=== PATIENT | female | born 1940 | race Hispanic/Latino ===

== ENCOUNTER 2021-09-15 06:46 | Observation (INO) | payer MEDICARE ==
[2021-09-11 15:52] LABS: BASOPHILS % 0.5 % (0.0-1.0); EOSINOPHILS # (AUTO) 0.2 (0.0-0.4); EOSINOPHILS % 2.9 % (0.0-6.0); HEMATOCRIT 36.4 % (34.2-44.1); HEMOGLOBIN 11.9 g/dL (12.0-16.0); LYMPHOCYTES # (AUTO) 1.6 (1.0-3.2); LYMPHOCYTES % 25.2 % (18.0-39.1); MEAN CORPUSCULAR HEMOGLOBIN 29.7 pg (28-32); MEAN CORPUSCULAR HGB CONC 32.7 g/dL (31-35); MEAN CORPUSCULAR VOLUME 90.8 fL (81-99); MONOCYTES # (AUTO) 0.6 (0.2-0.8); MONOCYTES % 9.8 % (4.4-11.3); NEUTROPHILS # (AUTO) 3.8 (2.1-6.9); NEUTROPHILS % 61.4 % (38.7-80.0); PLATELET COUNT 192 x10e3/uL (140-360); RED BLOOD COUNT 4.01 x10e6/uL (3.6-5.1); RED CELL DISTRIBUTION WIDTH 14.2 % (11.7-14.4)
[2021-09-11 16:09] LABS: CALCIUM 9.1 mg/dL (8.4-10.2); CREATININE, SERUM 0.94 mg/dL (0.57-1.11)
[~2021-09-15] VITALS: Ht 149.9 cm; Wt 72.6 kg
[~2021-09-15 06:46] MED LIST: ALENDRONATE SODI5 MG; ATORVASTATIN CA20 MG PO; CIPRO500 MG PO; DICYCLOMINE HCL10 MG PO; FUROSEMIDE40 MG PO; GABAPENTIN300 MG PO; GLIPIZIDE-METF1 EAC2 PO; HYDRALAZINE HCL25 MG PO; JARDIANCE10 MG; LANTUS 3ML100 UNITS/ SC; LEVOTHYROXINE112 MCG PO; LEVSIN-SL0.125 MG PO; LOSARTAN POTASS25 MG PO; LYRICA50 MG PO; METFORMIN HCL500 MG PO; METOPROLOL TART50 MG PO; METRONIDAZOLE500 MG PO; OMEPRAZOLE40 MG PO; PEPCID20 MG PO; SENNA LAX8.6 MG PO; TYLENOL # 31 EA PO; ZOFRAN ODT4 MG PO
[2021-09-15] MEDS ORDERED: SODIUM CHLORIDE 0.9% 50ML 100 ML ONE (06:52)
[2021-09-15] MEDS ORDERED: GABAPENTIN 300 MG CAP ONE (06:52)
[2021-09-15] MEDS ORDERED: CELECOXIB 200 MG CAP ONE (06:52)
[2021-09-15] MEDS ORDERED: DEXAMETHASONE SOD PHOS 10 MG/1 ML VIAL ONE (06:52)
[2021-09-15] MEDS ORDERED: TRANEXAMIC ACID 1,000 MG/10 ML ML ONE (06:57)
[2021-09-15] MEDS ORDERED: SODIUM CHLORIDE 0.9% 500ML 500 ML ONE (06:58)
[2021-09-15] MEDS ORDERED: Vancomycin IV 1,000 MG ONE (06:58)
[2021-09-15] MEDS ORDERED: ROPIVACAINE 246.25 MG, EPINEPHRINE HCL 1:1000 1ML 0.5 MG, CLONIDINE HCL 0.08 MG, KETORO... INJ ONE ×5 (08:00)
[2021-09-15] MEDS ORDERED: KETOROLAC TROMETHAMINE 30 MG/ML VIAL IV PRN (09:45)
[2021-09-15] MEDS ORDERED: DIPHENHYDRAMINE HCL INJ 50 MG/ML VIAL IV PRN (09:45)
[2021-09-15] MEDS ORDERED: HYDROCODONE/APAP 7.5MG-325MG 1 EA TAB PO PRN (09:45)
[2021-09-15] MEDS ORDERED: ONDANSETRON HCL INJ 2MG/ML 2ML 2 MG/ML VIAL IV PRN (09:45)
[2021-09-15] MEDS ORDERED: DOCUSATE SODIUM 100 MG CAP PO PRN (09:45)
[2021-09-15] MEDS ORDERED: SODIUM CHLORIDE 0.9% 1000ML 1,000 ML IV SCH (09:45)
[2021-09-15] MEDS ORDERED: HYDROCODONE/APAP 5MG-325MG TAB PO PRN (09:45)
[2021-09-15] MEDS ORDERED: ACETAMINOPHEN 650 MG SUPP PR PRN (09:45)
[2021-09-15] MEDS ORDERED: LABETALOL HCL 20 ML ONE (09:55)
[2021-09-15] MEDS ORDERED: FENTANYL CITRATE/PF 100MCG/2 ML INJ ONE ×2 (10:16→13:10)
[2021-09-15] MEDS ORDERED: ACETAMINOPHEN 1000 MG/100 ML IV PRN (12:00)
[2021-09-15 12:03] VITALS: BP 150/90
[2021-09-15] MEDS ORDERED: POVIDONE IODINE 0.05% 0.05 % ML PO ONE (12:18)
[2021-09-15] MEDS ORDERED: SEVOFLURANE INHAL SOLN 250 ML PEN BTL ONE (12:18)
[2021-09-15] MEDS ORDERED: ONDANSETRON HCL INJ 2MG/ML 2ML 2 MG/ML VIAL ONE (12:18)
[2021-09-15] MEDS ORDERED: LIDOCAINE HCL 2% LOCAL INJ 5 ML SDV VIAL INJ ONE (12:18)
[2021-09-15] MEDS ORDERED: ACETAMINOPHEN 1000 MG/100 ML IV ONE (12:18)
[2021-09-15] MEDS ORDERED: PROPOFOL IV EMULSION 10 MG/ML 20 ML VIAL ONE (12:18)
[2021-09-15] MEDS ORDERED: GLYCOPYRROLATE INJ 0.2 MG/ML VIAL ONE (12:18)
[2021-09-15 12:46] VITALS: BP 141/73
[2021-09-15] MEDS ORDERED: ROPIVACAINE 0.5% 5 MG/ML 30 ML SDV ONE (13:03)
[2021-09-15] MEDS ORDERED: MIDAZOLAM HCL 2 MG/2 ML VIAL ONE (13:10)
[2021-09-15 15:54] VITALS: BP 145/82
[2021-09-15] MEDS ORDERED: Cefazolin 1 GM in SODIUM CHLORIDE 0.9% 50ML 50 ML IV SCH (16:00)
[2021-09-15] MEDS ORDERED: CELECOXIB 100 MG CAP PO SCH (17:00)
[2021-09-15] MEDS ORDERED: ASPIRIN 325 MG TAB PO SCH (17:00)
[2021-09-15] MEDS ORDERED: ZOLPIDEM TARTRATE 5 MG TAB PO PRN (21:00)
[2021-09-16] MEDS ORDERED: CELECOXIB 200 MG CAP PO SCH (09:00)
== END 2021-09-15 20:02 | disposition home or self-care (01) ==
LOC: OR 06:46 → PACU V 09:34 → MED/SURG 10:42
PROVIDERS: ADMIT Specialist; ATTEND Specialist
DX: M17.0 Bilateral primary osteoarthritis of knee (principal); Z20.822 Contact with and (suspected) exposure to COVID-19; Z88.0 Allergy status to penicillin; Z01.818 Encounter for other preprocedural examination; I10 Essential (primary) hypertension; E78.5 Hyperlipidemia, unspecified; K21.9 Gastro-esophageal reflux disease without esophagitis; Z86.73 Personal history of transient ischemic attack (TIA), and cerebral infarction without residual deficits; E11.9 Type 2 diabetes mellitus without complications; E11.8 Type 2 diabetes mellitus with unspecified complications; E03.9 Hypothyroidism, unspecified
CPT/HCPCS: 27447; 36415 ×2; 71046; 73560; 80048; 82948; 85025; 86850; 86900; 86920; 97116; 97161; 97530; C1713; G0378; J0131; J0171; J0690; J1100; J1885; J2001; J2250; J2405; J2704; J2795; J3010; J3370; J7030; J7040; U0002

== ENCOUNTER 2022-12-29 06:21 | Observation (INO) | payer MEDICARE ==
[2022-12-28 10:44] LABS: BASOPHILS % 0.5 % (0.0-1.0); EOSINOPHILS # (AUTO) 0.2 (0.0-0.4); EOSINOPHILS % 2.9 % (0.0-6.0); HEMATOCRIT 38.6 % (34.2-44.1); HEMOGLOBIN 12.6 g/dL (12.0-16.0); LYMPHOCYTES # (AUTO) 1.5 (1.0-3.2); LYMPHOCYTES % 23.7 % (18.0-39.1); MEAN CORPUSCULAR HEMOGLOBIN 28.9 pg (28-32); MEAN CORPUSCULAR HGB CONC 32.6 g/dL (31-35); MEAN CORPUSCULAR VOLUME 88.5 fL (81-99); MONOCYTES # (AUTO) 0.5 (0.2-0.8); MONOCYTES % 8.8 % (4.4-11.3); NEUTROPHILS # (AUTO) 3.9 (2.1-6.9); NEUTROPHILS % 63.8 % (38.7-80.0); PLATELET COUNT 200 x10e3/uL (140-360); RED BLOOD COUNT 4.36 x10e6/uL (3.6-5.1); RED CELL DISTRIBUTION WIDTH 13.8 % (11.7-14.4)
[2022-12-28 11:02] LABS: ANION GAP 16.4 mmol/L (8-16); CALCIUM 9.3 mg/dL (8.4-10.2); CREATININE, SERUM 1.05 mg/dL (0.57-1.11); POTASSIUM 4.4 mmol/L (3.5-5.1)
[~2022-12-29] VITALS: Ht 149.9 cm; Wt 68.5 kg
[2022-12-29] VITALS (7 sets, daily range): BP systolic 110–136; BP diastolic 57–74; PULSE 63–72; RESP 16–18; TEMP 97.4–97.9; O2SAT 95–99
[~2022-12-29 06:21] MED LIST changes: -ALENDRONATE SODI5 MG; +ALENDRONATE SODI5 MG PO; +JARDIANCE10 MG PO; +ZETIA10 MG PO
[2022-12-29] MEDS ORDERED: CELECOXIB 200 MG CAP ONE (07:07)
[2022-12-29] MEDS ORDERED: CEFAZOLIN SODIUM 2 GM ONE (07:08)
[2022-12-29] MEDS ORDERED: GABAPENTIN 300 MG CAP ONE (07:08)
[2022-12-29] MEDS ORDERED: DEXAMETHASONE SOD PHOS 10 MG/1 ML VIAL ONE (07:08)
[2022-12-29] MEDS ORDERED: LACTATED RINGER'S 1,000 ML ONE (07:08)
[2022-12-29] MEDS ORDERED: ROPIVACAINE 246.25 MG, EPINEPHRINE HCL 1:1000 1ML 0.5 MG, CLONIDINE HCL 0.08 MG, KETORO... INJ ONE ×5 (07:30)
[2022-12-29] MEDS ORDERED: SODIUM CHLORIDE 0.9% 500ML 500 ML ONE (08:05)
[2022-12-29] MEDS ORDERED: TRANEXAMIC ACID 20 ML ONE (08:05)
[2022-12-29] MEDS ORDERED: Vancomycin IV 1 GM VIAL ONE (08:05)
[2022-12-29] MEDS ORDERED: Vancomycin IV 1,000 MG ONE (08:16)
[2022-12-29] MEDS ORDERED: KETAMINE 50MG/5ML SYR ONE (09:00)
[2022-12-29] MEDS ORDERED: HYDROCODONE/APAP 7.5MG-325MG 1 EA TAB PO PRN (09:45)
[2022-12-29] MEDS ORDERED: HYDROCODONE/APAP 5MG-325MG TAB PO PRN (09:45)
[2022-12-29] MEDS ORDERED: DIPHENHYDRAMINE HCL INJ 50 MG/ML VIAL IV PRN (09:45)
[2022-12-29] MEDS ORDERED: ONDANSETRON HCL INJ 2MG/ML 2ML 2 MG/ML VIAL IV PRN (09:45)
[2022-12-29] MEDS: SODIUM CHLORIDE 0.9% 1000ML 1,000 ML IV SCH ×2 (09:45→23:13)
[2022-12-29] MEDS ORDERED: DOCUSATE SODIUM 100 MG CAP PO PRN (09:45)
[2022-12-29] MEDS ORDERED: LIDOCAINE HCL 2% LOCAL INJ 5 ML SDV VIAL INJ ONE (12:51)
[2022-12-29] MEDS ORDERED: POVIDONE IODINE 0.05% 0.05 % ML PO ONE (12:51)
[2022-12-29] MEDS ORDERED: SEVOFLURANE INHAL SOLN 250 ML PEN BTL ONE (12:51)
[2022-12-29] MEDS ORDERED: ONDANSETRON HCL INJ 2MG/ML 2ML 2 MG/ML VIAL ONE (12:51)
[2022-12-29] MEDS ORDERED: PROPOFOL IV EMULSION 10 MG/ML 20 ML VIAL ONE (12:51)
[2022-12-29] MEDS ORDERED: FENTANYL CITRATE/PF 100MCG/2 ML INJ ONE (12:59)
[2022-12-29] MEDS ORDERED: MIDAZOLAM HCL 2 MG/2 ML VIAL ONE (12:59)
[2022-12-29] MEDS ORDERED: ROPIVACAINE 0.5% 5 MG/ML 30 ML SDV ONE (13:38)
[2022-12-29] MEDS ORDERED: ACETAMINOPHEN 1000 MG/100 ML IV PRN (15:00)
[2022-12-29] MEDS: ASPIRIN 325 MG TAB PO SCH (16:55)
[2022-12-29] MEDS: CELECOXIB 100 MG CAP PO SCH (16:55)
[2022-12-30] VITALS (7 sets, daily range): BP systolic 104–117; BP diastolic 61–69; PULSE 66–70; RESP 16–18; TEMP 97.1–97.7; O2SAT 98–100
[2022-12-30] MEDS ORDERED: ALENDRONATE SODIUM 70 MG PO SCH
[2022-12-30] MEDS ORDERED: EZETIMIBE 10 MG TAB PO ONE (00:15)
[2022-12-30] MEDS ORDERED: ATORVASTATIN 20 MG TAB PO ONE (00:15)
[2022-12-30] MEDS ORDERED: METFORMIN HCL 500 MG TAB PO ONE (00:15)
[2022-12-30] MEDS ORDERED: GLIPIZIDE 5 MG TAB PO ONE (00:15)
[2022-12-30 05:39] LABS: HEMATOCRIT 32.5 % (34.2-44.1); HEMOGLOBIN 10.6 g/dL (12.0-16.0)
[2022-12-30] MEDS ORDERED: LEVOTHYROXINE SODIUM 50 MCG TAB PO SCH (06:00)
[2022-12-30] MEDS ORDERED: PANTOPRAZOLE SOD 40 MG TABEC PO SCH (07:30)
[2022-12-30] MEDS ORDERED: GLIPIZIDE 5 MG TAB PO SCH ×2 (07:30→21:00)
[2022-12-30] MEDS ORDERED: METFORMIN HCL 500 MG TAB PO SCH ×2 (07:30→21:00)
[2022-12-30] MEDS: SODIUM CHLORIDE 0.9% 1000ML 1,000 ML IV SCH (07:33)
[2022-12-30] MEDS ORDERED: LOSARTAN POTASSIUM 25 MG TAB PO SCH (09:00)
[2022-12-30] MEDS ORDERED: GABAPENTIN 300 MG CAP PO SCH (09:00)
[2022-12-30] MEDS ORDERED: EZETIMIBE 10 MG TAB PO SCH (09:00)
[2022-12-30] MEDS ORDERED: FUROSEMIDE 40 MG TAB PO SCH (09:00)
[2022-12-30] MEDS ORDERED: METOPROLOL TARTRATE 50 MG TAB PO SCH ×2 (09:00)
[2022-12-30] MEDS ORDERED: EMPAGLIFLOZIN 10 MG TABLET PO SCH (09:00)
[2022-12-30] MEDS ORDERED: INSULIN GLARGINE 100 UNITS/ML VIAL SQ SCH (09:00)
[2022-12-30] MEDS: CELECOXIB 100 MG CAP PO SCH (09:17)
[2022-12-30] MEDS: ASPIRIN 325 MG TAB PO SCH (09:19)
[2022-12-30] MEDS ORDERED: ONDANSETRON HCL 4 MG ORAL DISINTEGRATING TAB PO PRN (12:30)
[2022-12-30] MEDS ORDERED: ASPIRIN81 MG PO (13:20)
[2022-12-30] MEDS ORDERED: ATORVASTATIN 20 MG TAB PO SCH (21:00)
== END 2022-12-30 15:24 | disposition home or self-care (01) ==
LOC: OR 06:21 → PACU V 09:32 → MED/SURG 11:48
PROVIDERS: ADMIT Specialist; ATTEND Specialist
DX: M17.12 Unilateral primary osteoarthritis, left knee (principal); I10 Essential (primary) hypertension; E78.5 Hyperlipidemia, unspecified; E11.9 Type 2 diabetes mellitus without complications; Z88.0 Allergy status to penicillin; Z01.810 Encounter for preprocedural cardiovascular examination; Z01.812 Encounter for preprocedural laboratory examination; Z01.818 Encounter for other preprocedural examination; Z79.4 Long term (current) use of insulin; Z79.84 Long term (current) use of oral hypoglycemic drugs; Z79.899 Other long term (current) drug therapy; Z68.30 Body mass index [BMI] 30.0-30.9, adult
CPT/HCPCS: 27447; 36415 ×3; 71046; 73560; 80048; 82948 ×2; 85014; 85018; 85025; 86850; 86900; 86920; 93005; 94799 ×2; 97110; 97116 ×3; 97161; 97530; C1713 ×2; C1776 ×3; G0378 ×2; J0171; J0690 ×2; J1100; J1815; J1885; J2001; J2250; J2405; J2704; J2795; J3010; J3370; J7030; J7040; J7121; S0164